=== PATIENT | male | born 1965 | race Caucasian/White ===

== ENCOUNTER 2017-10-12 16:27 | Emergency (ER) | payer OTHER ==
[2017-10-12 16:46] VITALS: BP 151/92; PULSE 93; RESP 16; TEMP 97.7; O2SAT 97
--- NOTE | 2017-10-12 17:25 | EDPHY ---
H & P Time Seen by Provider: 10/12/17 17:03 HPI/ROS: CHIEF COMPLAINT: dizziness HISTORY OF PRESENT ILLNESS: The patient is a 52 y/o male complaining of dizziness, onset this morning. He awoke this morning with dizziness an intense spinning sensation. The dizziness increased with head movement and position change. Associated with nausea. He got out of bed, drank some water, felt better about an hour later and went back to sleep. Today, he has had intermittent dizziness sensation, though much less intense than this morning. The symptoms come and go and vary in intensity. He called his primary care provider for an appointment and the triage nurse he spoke to suggested the ED. He denies QUINTERO, weakness/numbness, recent URI, or any other associated symptoms. REVIEW OF SYSTEMS: Constitutional: No fever, no chills Eyes: No visual changes ENT: No sore throat Respiratory: No cough, no shortness of breath Cardiac: No chest pain Gastrointestinal: no vomiting, no abdominal pain Genitourinary: no dysuria Musculoskeletal: No myalgias Skin: No rash Neurological: No headache, no numbness, no weakness Psychiatric: No depression Past Medical/Surgical History: Ear infections, one possible inner ear Social History: at bedside, lives in [place], PCP: Dr. Aguila Smoking Status: Never smoked Physical Exam: General Appearance: Alert, pleasant Eyes: horizontal nystagmus, pupils equal and round, no conjunctival pallor or injection ENT, Mouth: TM's normal, mucous membranes moist Neck: Normal inspection Respiratory: Lungs are clear to auscultation Cardiovascular: Regular rate and rhythm Gastrointestinal: Abdomen is soft and non-tender Neurological: Alert, oriented x3, cranial nerves II through XII intact, motor 5 /5, sensory intact to light touch, normal gait Skin: Warm and dry Extremities: normal inspection Psychiatric: Mood and affect normal Constitutional: Initial Vital Signs Temperature (C) 36.5 C 10/12/17 16:44 Heart Rate 93 10/12/17 16:44 Respiratory Rate 16 10/12/17 16:44 Blood Pressure 151/92 H 10/12/17 16:44 O2 Sat (%) 97 10/12/17 16:44 O2 Delivery Mode Room Air Allergies/Adverse Reactions: No Known Allergies Allergy (Unverified 10/12/17 16:44) Home Medications: Medication Instructions Recorded Meclizine HCl [Meclizine HCl 25 mg 25 mg PO TID PRN #15 tab 10/12/17 (RX,OTC)] Medical Decision Making ED Course/Re-evaluation: This patient presents with vertigo. Symptoms consistent with peripheral vertigo. No concerning signs or symptoms for a central etiology of vertigo. Neurologic exam is normal. Antivert instructed. Follow-up instructions and return precautions given. Advised follow up with ENT for persistent/recurrent sx. Differential Diagnosis: Differential diagnosis includes TIA, stroke, intracranial hemorrhage, tumor, electrolyte abnormality and acute labyrinthitis. Departure - Departure Disposition: Home, Routine, Self-Care Clinical Impression: Vertigo Condition: Good Instructions: Vertigo (ED) Additional Instructions: 1. Take Antivert as directed as needed for dizziness. 2. Follow-up with ENT for continued symptoms. 3. Return for worsening of condition. Referrals: Anitra Aguila MD [Primary Care Provider] - As per Instructions Zaid Victoria MD [Medical Doctor] - As per Instructions Prescriptions: Meclizine HCl [Meclizine HCl 25 mg (RX,OTC)] 25 mg PO TID PRN #15 tab PRN Reason: Dizziness Report Scribed for: Paula Steele Report Scribed by: Neha Hicks Date of Report: 10/12/17 Time of Report: 17:28 Physician Review and Approval Statement: 10/12/17 17:28 Portions of this note were transcribed by a medical office assistant. I personally performed a history, physical exam, medical decision making, and confirmed accuracy of information the transcribed note.
== END 2017-10-12 17:54 | disposition home or self-care (01) ==
DX: R42 Dizziness and giddiness (principal)